=== PATIENT | male | born 1945 | race Caucasian/White ===

== ENCOUNTER 2019-04-21 22:58 | Emergency (ER) | payer OTHER ==
[~2019-04-21] VITALS: Ht 185.4 cm; Wt 68.0 kg
[2019-04-21 23:59] LABS: ABSOLUTE NEUTROPHILS 9.4 thou/uL (1.4-8.2); BASOPHILS 1.3 % (0.0-2.0); EOSINOPHILS 0.8 % (0.0-3.0); HEMOGLOBIN 12.6 gm/dL (14.0-18.0); LYMPHOCYTES 14.5 % (24.0-44.0); MCH 31.9 pg (26.0-34.0); MCHC 33.3 g/dL (28.0-37.0); MCV 95.8 fL (80.0-100.0); MONOCYTES 6.2 % (1.0-8.0); PLATELET COUNT 382 thou/uL (150-400); POLYS 77.2 % (36.0-66.0); RBC 3.96 mil/uL (4.50-6.00); RDW 12.7 % (10.5-14.5); WBC 12.1 thou/uL (4.0-11.0)
[2019-04-22 00:15] LABS: ANION GAP 10 mmol/L (7-16); BUN 9 mg/dL (7-18); CALCIUM 9.6 mg/dL (8.5-10.1); CHLORIDE 105 mmol/L (98-107); CO2 29 mmol/L (21-32); CREATININE 0.7 mg/dL (0.7-1.3); GLUCOSE 105 mg/dL (74-106); POTASSIUM 3.2 mmol/L (3.5-5.1); SODIUM 144 mmol/L (136-145)
[2019-04-22] MEDS ORDERED: LIPITOR40 MG PO (00:16)
[2019-04-22] MEDS ORDERED: VITAMIN C500 M2 PO (00:16)
[2019-04-22] MEDS ORDERED: BAYER CHEWABLE81 MG PO (00:16)
[2019-04-22] MEDS ORDERED: CENTRUM SILVER1 EAC7 PO (00:17)
[2019-04-22] MEDS ORDERED: KEPPRA XR500 MG PO (00:17)
[2019-04-22] MEDS ORDERED: FLOMAX0.4 MG PO (00:17)
[2019-04-22] MEDS ORDERED: VITAMIN B-1100 M2 PO (00:18)
[2019-04-22] MEDS ORDERED: KLOR-CON 1010 MEQ PO (00:18)
[2019-04-22] MEDS ORDERED: SUPER THERAVIT1 EACH PO (00:18)
[2019-04-22 00:25] LABS: TROPONIN-I <0.06 ng/mL (<0.06)
[2019-04-22 02:47] VITALS: BP 117/71
--- NOTE | 2019-04-22 08:32 | EKG ---
[place] [address] [place] [address] ELECTROCARDIOGRAM REPORT Name: HARVINDER MADDOX Room #: [facility] Alli#: [id number] Admission: 04/21/19 Attend Phys: Discharge: 04/22/19 Date of : 47 Report #: [id number] THIS REPORT FOR: //name// ED Test Date: 2019-04-22 Test Time: 02:45:25 Pat Name: HARVINDER MADDOX Department: Room: Gender: Chef De Froid: samson : 1945 Requested By: Walker Montejo Order Number: [id number] MD: Kamari Philip Measurements Intervals [place] Rate: 109 P: 90 W[place]: 160 QRS: 259 QRSD: 88 T: 86 QT: 340 QTc: 458 Interpretive Statements Sinus tachycardia Otherwise no significant abnormality Compared to ECG 01/16/1996 13:33:00 Sinus tachycardia is now present Electronically Signed On 04-22-2019 8:31:45 CDT by Kamari Philip [email or web address] <ELECTRONICALLY SIGNED> By: Kamari Philip MD, [facility] 04/22/19 0831 [id number] Kamari Philip MD, FACC /EPI
== END 2019-04-22 02:56 | disposition short-term general hospital (02) ==
LOC: ER 22:58
PROVIDERS: Emergency Medicine
DX: S37.39XA Other injury of urethra, initial encounter (principal); Z88.7 Allergy status to serum and vaccine; Y92.89 Other specified places as the place of occurrence of the external cause; Y93.89 Activity, other specified; Y99.8 Other external cause status